=== PATIENT | female | born 1990 | race Two or more races ===

== ENCOUNTER 2024-03-29 10:56 | Inpatient (IN) | payer OTHER ==
[~2024-03-29] VITALS: Ht 157.5 cm; Wt 56.0 kg
--- NOTE | 2024-03-29 11:11 | ED.PDOC ---
GI ASSESSMENT HPI Comments 33Y F with PMHx crohn's disease presents to ED for chief complaint abd pain x2days with nausea, blood in stool, and dizziness. Pt states she gets nauseous when pain starts and becomes dizzy when walking. Abd pain level 10/10 and radiates to her back. Pt states she started noticing changes in stool last week and now has bright red blood in the stool. Pt denies vomiting. Pt is being f/u by Dr. Kim. Per pt, last flare was ~10yrs ago and pt was given Prednisone and other other unknown medication. Time Seen by MD: 11:02 Reviewed Notes: Medications, Allergies Allergies: Coded Allergies: Penicillins (Verified Allergy, Mild, 03/29/24) Uncoded Allergies: SULFA (Allergy, Mild, 03/29/24) Information Source: Patient Mode of Arrival: Ambulatory Timing: Days Duration: Since onset Quality: Sharp Vomitus: None Stool: Blood Streaked Severity: Moderate Recent: None Recent Hx of: Ulcer Disease Pain Location: Diffuse Modifying Factors: Nothing Associated sign and symptoms: Nausea, Abdominal Pain, Blood in Stool, Other Past Medical History Past Medical History (Other): Crohn's disease Surgical History: Denies all surgeries G[employer]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 Family History Family History: Unknown Social History Smoker: Non-Smoker Alcohol: Denies ETOH Use Drugs: Denies Drug Use Lives In: Home Constitutional: denies: chills, diaphoresis, fatigue, fever, malaise, sweats, weakness, others EENTM: denies: blurred vision, double vision, ear bleeding, ear discharge, ear drainage, ear pain, ear ringing, eye pain, eye redness, hearing loss, mouth pain, mouth swelling, nasal discharge, nose bleeding, nose congestion, nose pain, photophobia, tearing, throat pain, throat swelling, voice changes, others Respiratory: denies: cough, hemoptysis, orthopnea, SOB at rest, shortness of breath, SOB with excertion, stridor, wheezing, others Cardiovascular: denies: chest pain, dizzy spells, diaphoresis, Dyspnea on exertion, edema, irregular heart beat, left arm pain, lightheadedness, palpitations, PND, syncope, others Gastrointestinal: reports: abdominal pain, blood streaked bowels; denies: abdomen distended, constipated, diarrhea, dysphagia, difficulty swallowing, hematemesis, melena, nausea, poor appetite, poor fluid intake, rectal bleeding, rectal pain, vomiting, others Genitourinary: denies: abnormal vagina bleeding, burning, dyspareunia, dysuria, flank pain, frequency, hematuria, incontinence, pain, , vagina discharge, urgency, others Neurological: reports: dizziness; denies: fainting, headache, left sided numbness, left sided weakness, numbness, paresthesia, pre-existing deficit, r ight sided numbness, right sided weakness, seizure, speech problems, tingling, tremors, weakness, others Musculoskeletal: reports: back pain; denies: gout, joint pain, joint swelling, muscle pain, muscle stiffness, neck pain, others Integumetry: denies: bruises, change in color, change in hair/nails, dryness, laceration, lesions, lumps, rash, wounds, others Allergic/Immunocompromised: denies: Difficulty Healing, Frequent Infections, Hives, Itching, others Hematologic/Lymphatic: denies: anemia, blood clots, easy bleeding, easy bruising, swollen glands, others Endocrine: denies: excessive hunger, excessive sweating, excessive thirst, excessive urination, flushing, intolerance to cold, intolerance to heat, unexplained weight gain, unexplained weight loss, others Psychiatric: denies: anxiety, bipolar disorder, depression, hopeless, panic disorder, schizophrenia, sleepless, suicidal, others All Other Systems: Reviewed and Negative Physical Exam General Appearance: Moderate Distress, Normal HEENT: Normal ENT Inspection, Pharynx Normal, TMs Normal Neck: Full Range of Motion, Non-Tender, Normal, Normal Inspection Respiratory: Chest Non-Tender, Lungs Clear, No Accessory Muscle Use, No Respiratory Distress, Normal Breath Sounds Cardiovascular: No Edema, No JVD, No Murmur, No Gallop, Normal Peripheral Pulses, Tachycardia Breast Exam: Deferred Gastrointestinal: No Organomegaly, Non Tender, No Pulsatile Mass, Normal Bowel Sounds, Soft Genitalia: Deferred Pelvic: Deferred Rectal: Deferred Extremities: No calf tenderness, Normal capillary refill, Normal inspection, Normal range of motion, Non-tender, No pedal edema Musculoskeletal : Apperance: Normal Neurologic: Alert, solar electric installer II-XII nml as Tested, No Motor Deficits, Normal Affect, Normal Mood, No Sensory Deficits Cerebellar Function: Normal Reflexes: Normal Skin: Dry, Normal Color, Warm Peripheral Pulses: 3+ Radial (R), 3+ Radial (L) Lymphatic: No Adenopathy Was a procedure done? Was a procedure done?: No GI differential Dx Differential Diagnosis: Constipation, Diverticular disease, Esophagitis, Gastritis/PUD, Gastroenteritis, Other X-Ray, Labs, Meds, VS Vital Signs Date Time Temp Pulse Resp B/P (MAP) Pulse Ox O2 Delivery O2 Flow Rate FiO2 03/29/24 13:49 83 16 114/70 (85) 100 03/29/24 13:46 79 16 114/70 03/29/24 11:59 94 16 98 Room Air* 0 21 03/29/24 11:47 94 16 117/73 03/29/24 11:33 97.8 98 16 117/73 (88) 98 97.8 03/29/24 11:07 97.9 129 18 126/88 (101) 98 Lab Test 03/29/24 11:16 03/29/24 11:05 Range/Units White Blood Count 5.5 4.4-10.8 10^3/uL Red Blood Count 4.70 4.0-5.20 10^6/uL Hemoglobin 14.5 12.2-16.2 g/dL Hematocrit 43.7 36.0-46.0 % Mean Corpuscular Volume 93.1 80.0-100.0 fL Mean Corpuscular Hemoglobin 30.9 28.0-32.0 pg Mean Corpuscular Hemoglobin Concent 33.2 32.0-36.0 g/dL Red Cell Distribution Width 14.2 11.8-14.3 % Platelet Count 334 140-450 10^3/uL Mean Platelet Volume 7.7 6.9-10.8 fL Neutrophils (%) (Auto) 53.7 37.0-80.0 % Lymphocytes (%) (Auto) 23.0 10.0-50.0 % Monocytes (%) (Auto) 17.2 H 0.0-12.0 % Eosinophils (%) (Auto) 5.1 0.0-7.0 % Basophils (%) (Auto) 1.0 0.0-2.0 % Neutrophils # (Auto) 2.9 1.6-8.6 10 ^3/uL Lymphocytes # (Auto) 1.3 0.4-5.4 10 ^3/uL Monocytes # (Auto) 0.9 0-1.3 10 ^3/uL Eosinophils # (Auto) 0.3 0-0.8 10 ^3/uL Basophils # (Auto) 0.1 0-0.2 10 ^3/uL Nucleated Red Blood Cells 0.1 % Sodium Level 140 136-145 mmol/L Potassium Level 3.8 3.5-5.1 mmol/L Chloride Level 107 98-107 mmol/L Carbon Dioxide Level 28 20-31 mmol/L Anion Gap 5 5-15 Blood Urea Nitrogen < 5 L 9-23 mg/dL Creatinine 0.67 0.550-1.02 mg/dL Glomerular Filtration Rate Calc 118 >90 mL/min BUN/Creatinine Ratio 7.5 L 10.0-20.0 Serum Glucose 98 74-106 mg/dL Calcium Level 9.6 8.7-10.4 mg/dL Urine Color Colorless Yellow Urine Clarity Clear Clear Urine pH 6.0 5.0-9.0 Urine Specific [place] 1.002 1.001-1.035 Urine Protein Negative Negative Urine Ketones Negative Negative Urine Blood 1+ H Negative /uL Urine Nitrite Negative Negative Urine Bilirubin Negative Negative Urine Urobilinogen Normal Negative mg/dL Urine Leukocyte Esterase Negative Negative /uL Urine RBC <1 0 - 4 /hpf Urine WBC None seen 0 - 5 /hpf Urine Squamous Epithelial Cells Few <5 /hpf Urine Bacteria None seen None Seen /hpf Urine Glucose Normal Normal mg/dL Current Medications Medications (Trade) Dose Ordered Sig/Deonte Route Start Time Stop Time Status Last Admin Sodium Chloride 1,000 ml @ 1,000 mls/hr Q1H ONCE IV 03/29/24 11:15 03/29/24 12:14 DC 03/29/24 11:47 Ondansetron HCl (Zofran) 4 mg ONCE ONCE IV 03/29/24 11:15 03/29/24 11:16 DC 03/29/24 11:46 Morphine Sulfate 4 mg ONCE ONCE IV 03/29/24 11:15 03/29/24 11:16 DC 03/29/24 11:[address] [address] Ph: [phone] DIAGNOSTIC IMAGING Diagnostic Imaging Report : [id number] Signed PATIENT: EMERSON SANCHEZ ACCT: [id number] UNIT: [id number] : 1990 LOC: ER ROOM / BED: / AGE / SEX: 33 / F ADM STATUS: REG ER SERVICE 1228 ORDERING PHYSICIAN: RANDALL GONZALES MD PROCEDURE(s): ABPL - CT AB PEL WO CON-NO ORAL OR IV REASON: chrons ORDER NUMBER(s): [id number], ACCESSION NUMBER(s): [id number] Procedure: CT CT AB PEL WO CON-NO ORAL OR IV 03/29/2024 12:38 PM Indication:chrons. Comparison Study: None available at time of dictation. Technique: Axial images were obtained and reformatted in coronal and sagittal planes. All CT scans at this medical facility are performed using dose modulation techniques as appropriate to a performed exam including the following: Automated exposure control was utilized; adjustment of the MA and/or KV according to patient size; and use of iterative reconstruction technique. CT Dose: CTDI volume is 5.07 mGy. Dose-length product is 264.79 mGy*cm FINDINGS: Lower Chest: Unremarkable. Hepatobiliary: Unremarkable. Spleen: Unremarkable. Pancreas: Unremarkable. Adrenal Glands: Unremarkable. tract: The kidneys are normal in size bilaterally without hydronephrosis or nephrolithiasis. The urinary bladder is unremarkable. GI tract: The stomach is grossly normal in appearance. No evidence of small bowel obstruction. Diffuse mural thickening of the entire large bowel and rectum with adjacent fat stranding compatible with known history of inflammatory bowel disease.. The appendix is normal. Lymphatics: No mesenteric, retroperitoneal or periportal lymphadenopathy. Vasculature: The abdominal aorta is normal in in caliber. Pelvic Organs: Retroverted uterus. A tampon is seen in the vaginal cuff. Bones/soft tissues: No acute abnormality. Other: None. IMPRESSION: 1. Pancolitis and proctitis compatible with history of known crohn's disease. ATED BY: JERRICA GUERRIER MD DICTATED DATE/TIME: 03/29/24 1313 SIGNED BY: JERRICA GUERRIER MD SIGNED DATE/TIME: 03/29/24 1313 CC: Patient alert pain Complaining of abdominal pain. Vitals stable. Answering all questions. History of Crohn's disease. Counseled patient effects of Crohn's for 15 minutes. Has not changed her diet. Establish intravenous access. Was given fluids. Was given pain medication. Was given Zofran. Reviewed her history. Explained to the patient. Continue cardiac monitoring. Time of 1ST Reevaluation: 11:32 Reevaluation 1ST: Unchanged Patient Education/Counseling: Diagnosis, Treatment Family Education/Counseling: No Family Present Departure 1 Departure Time of Disposition: 11:23 Impression: Primary Impression: Inflammatory bowel disease Additional Impressions: Acute abdominal pain Tachycardia Disposition: ADMITTED INPATIENT Admit to: Med Surg Condition: Guarded Critical Care Note Critical Care Time?: No Stability Stability form required: No I personally scribed for RANDALL GONZALES MD ([email or web address]) on 03/29/24 at 11:11. Electronically submitted by Melissa Contreras ([employer]). I personally scribed for RANDALL GONZALES MD ([email or web address]) on 03/29/24 at 13:49. Electronically submitted by Melissa Contreras ([employer]). RANDALL GONZALES MD Mar 29, 2024 11:11
[2024-03-29] MEDS: SODIUM CHLORIDE 0.9% 1,000 ML IV ONE ×2 (11:15→11:47)
[2024-03-29 11:30] LABS: Basophils # (auto) 0.1 10 ^3/uL (0-0.2); Eosinophils # (auto) 0.3 10 ^3/uL (0-0.8); Eosinophils % (auto) 5.1 % (0.0-7.0); Hematocrit 43.7 % (36.0-46.0); Hemoglobin 14.5 g/dL (12.2-16.2); Lymphocytes # (auto) 1.3 10 ^3/uL (0.4-5.4); Mean Corpuscular Hemoglobin 30.9 pg (28.0-32.0); Mean Corpuscular Hgb Conc. 33.2 g/dL (32.0-36.0); Mean Corpuscular Volume 93.1 fL (80.0-100.0); Monocytes # (auto) 0.9 10 ^3/uL (0-1.3); Monocytes % (auto) 17.2 % (0.0-12.0); Neutrophils # (auto) 2.9 10 ^3/uL (1.6-8.6); Neutrophils % (auto) 53.7 % (37.0-80.0); Nucleated Red Blood Cells % 0.1 %; Platelet Count (auto) 334 10^3/uL (140-450); Red Cell Distribution Width 14.2 % (11.8-14.3); White Blood Cell 5.5 10^3/uL (4.4-10.8)
[2024-03-29 11:32] LABS: Urine Bacteria None Seen /hpf (None Seen); Urine WBC None Seen /hpf (0 - 5)
[2024-03-29 11:43] LABS: Urine Blood 1+ /uL (Negative); Urine Clarity Clear (Clear); Urine Color Colorless (Yellow); Urine Protein, UAD Negative (Negative); Urine Specific Gravity 1.002 (1.001-1.035); Urine Urobilinogen Normal (Negative)
[2024-03-29] MEDS: ONDANSETRON HCL 4 MG/2 ML VIAL IV ONE ×2 (11:46→17:51)
[2024-03-29] MEDS: MORPHINE SULFATE 4 MG/ML SYR/VIAL IV ONE (11:47)
[2024-03-29 11:52] LABS: Chloride 107 mmol/L (98-107); Potassium 3.8 mmol/L (3.5-5.1); Sodium 140 mmol/L (136-145)
[2024-03-29 11:53] LABS: Anion Gap 5 (5-15); Calcium 9.6 mg/dL (8.7-10.4); Carbon Dioxide 28 mmol/L (20-31)
[2024-03-29 11:58] LABS: Glucose 98 mg/dL (74-106)
[2024-03-29 11:59] VITALS: PULSE 94; RESP 16; O2SAT 98
[2024-03-29 11:59] LABS: BUN/Creatinine Ratio 7.5 (10.0-20.0); Blood Urea Nitrogen < 5 mg/dL (9-23)
--- NOTE | 2024-03-29 13:15 | DVH ---
Procedure: CT CT AB PEL WO CON-NO ORAL OR IV 03/29/2024 12:38 PM Indication:chrons. Comparison Study: None available at time of dictation. Technique: Axial images were obtained and reformatted in coronal and sagittal planes. All CT scans at this medical facility are performed using dose modulation techniques as appropriate t o a performed exam including the following: Automated exposure control was utilized; adjustment of th e MA and/or KV according to patient size; and use of iterative reconstruction technique. CT Dose: CTDI volume is 5.07 mGy. Dose-length product is 264.79 mGy*cm FINDINGS: Lower Chest: Unremarkable. Hepatobiliary: Unremarkable. Spleen: Unremarkable. Pancreas: Unremarkable. Adrenal Glands: Unremarkable. tract: The kidneys are normal in size bilaterally without hydronephrosis or nephrolithiasis. The urinary bladder is unremarkable. GI tract: The stomach is grossly normal in appearance. No evidence of small bowel obstruction. Diffus e mural thickening of the entire large bowel and rectum with adjacent fat stranding compatible with k nown history of inflammatory bowel disease.. The appendix is normal. Lymphatics: No mesenteric, retroperitoneal or periportal lymphadenopathy. Vasculature: The abdominal aorta is normal in in caliber. Pelvic Organs: Retroverted uterus. A tampon is seen in the vaginal cuff. Bones/soft tissues: No acute abnormality. Other: None. IMPRESSION: 1. Pancolitis and proctitis compatible with history of known crohn's disease.
[2024-03-29] MEDS: levoFLOXacin 500MG 100 ML IV ONE (17:36)
[2024-03-29] MEDS: MORPHINE SULFATE INJ 2 MG/ml SYRG IV ONE (17:51)
[2024-03-29] MEDS: ACETAMINOPHEN 500 MG TAB PO ONE (19:00)
[2024-03-29] MEDS: HYDROcodone-ACET 5/325MG TAB PO PRN (20:12)
[2024-03-29] MEDS ORDERED: MORPHINE SULFATE INJ 2 MG/ml SYRG IV PRN (21:30)
[2024-03-29] MEDS ORDERED: NITROGLYCERIN 0.4 MG SL TAB SL PRN (21:30)
[2024-03-29] MEDS: SODIUM CHLORIDE 0.9% 1,000 ML IV SCH (21:58)
--- NOTE | 2024-03-29 22:31 | DVHHPRES ---
History of Present Illness Resident Creating Document: CHANDA GARCIA RESIDENT History of Present Illness This is a 33 years old female with past medical history of Crohn's disease presented to the ED with a chief complaint of abdominal pain with bloody stool for 2 days prior to this admission. The patient states that abdominal pain which is colicky in nature ,localized to right lower quadrant, 10/10 with no aggravating and relieving factors and associated with bloody loose stool , fresh blood, nausea and few episodes of vomiting. She has significant family history of Crohn's disease and was diagnosed with Crohn's disease 10 years ago but she was not on any medications for Crohn's. She is following with for Crohn's disease and mentioned that she controlled her symptoms by doing dietary modification and last flare-up was 10 years ago. The patient denies chest pain, dizziness, diaphoresis,, dysuria or any blood in urine. PCP: Mino Mccormick Slot Floorman: Dr. Kim GI: Inflam bowel disease Past Surgical History None Family History Family history significant for Crohn's disease. Smoke: No ALCOHOL: none Drugs: None Lives: with Family Review of Systems Constitutional: No: Fever, Chills, Sweats, Weakness, Malaise, Other Eyes: No: Pain, Vision change, Conjunctivae inflammation, Eyelid inflammation, Other, Redness ENT: No: Ear pain, Ear discharge, Nose pain, Nose discharge, Nose congestion, Mouth pain, Mouth swelling, Throat pain, Throat swelling, Other Respiratory: No: Cough, Dry, Shortness of breath, SOB with excertion, Wheezing, Hemoptysis, Pleuritic Pain, Sputum, Wheezing, Other Cardiovascular: No: Chest Pain, Palpitations, Orthopnea, Paroxysmal Noc. Dy spnea, Edema, Lt Headedness, Other Gastrointestinal: Nausea, Vomiting, Abdominal Pain, Diarrhea, Hematochezia Genitourinary: No Dysuria, No Frequency, No Incontinence, No Hematuria, No Retention, No Other Musculoskeletal: No: other, neck pain, shoulder pain, arm pain, back pain, hand pain, leg pain, foot pain Skin: No: Rash, Lesions, Jaundice, Bruising, Other Neurological: No: Weakness, Numbness, Incoordination, Change in speech, Confusion, Seizures, Other Allergies: Coded Allergies: Penicillins (Verified Allergy, Mild, 03/29/24) Uncoded Allergies: SULFA (Allergy, Mild, 03/29/24) Medications Current Medications Medications Dose Ordered Sig/Deonte Route Start Time Stop Time Status Last Admin Dose Admin Acetaminophen/ Hydrocodone Bitart 1 tab Q4HPRN PRN PO 03/29/24 20:15 03/29/24 20:12 1 TAB Sodium Chloride 1,000 ml @ 75 mls/hr [id number] IV 03/29/24 21:30 03/29/24 21:58 75 MLS/HR Acetaminophen/ Hydrocodone Bitart 1 tab Q4HP PRN PO 03/29/24 21:30 Ondansetron HCl 4 mg Q4HP PRN IV 03/29/24 21:30 Morphine Sulfate 2 mg Q4HPRN PRN IV 03/29/24 21:30 Nitroglycerin 0.4 mg Q5MINP PRN SL 03/29/24 21:30 Morphine Sulfate 2 mg Q30M PRN IV 03/29/24 21:30 Ceftriaxone Sodium 50 ml @ 100 mls/hr DAILY@09 IV 03/30/24 09:00 Metronidazole 100 ml @ 100 mls/hr Q8HR IV 03/29/24 22:00 Exam Vital Signs Vital Signs Date Time Temp Pulse Resp B/P (MAP) Pulse Ox O2 Delivery O2 Flow Rate FiO2 03/29/24 20:38 98.1 75 16 115/79 (91) 98 98.1 03/29/24 11:59 Room Air* 0 21 Exam Physical examination: General Appearance: Alert, Oriented X3, Cooperative, No acute distress HEENT: Atraumatic, PERRLA, EOMI, Mucous membrane moist/pink Respiratory: Clear to auscultation, Normal air movement Cardiovascular: Regular rate, Normal S1, Normal S2, No murmurs, no chest wall tenderness Abdominal: Normal bowel sounds, Soft, No tenderness, No hepatospenomegaly, No masses Extremities: No clubbing, No cyanosis, No edema, Normal pulses, No tenderness/swelling Skin: No rashes, No breakdown, No significant lesion Neuro: Normal gait, Normal speech, Strength at 5/5 X4 ext, Normal tone, Sensation intact. Psych/Mental Status: Mental status NL, Mood NL Labs/Xrays Labs Test 03/29/24 11:16 03/29/24 11:15 03/29/24 11:05 Range/Units White Blood Count 5.5 4.4-10.8 10^3/uL Red Blood Count 4.70 4.0-5.20 10^6/uL Hemoglobin 14.5 12.2-16.2 g/dL Hematocrit 43.7 36.0-46.0 % Mean Corpuscular Volume 93.1 80.0-100.0 fL Mean Corpuscular Hemoglobin 30.9 28.0-32.0 pg Mean Corpuscular Hemoglobin Concent 33.2 32.0-36.0 g/dL Red Cell Distribution Width 14.2 11.8-14.3 % Platelet Count 334 140-450 10^3/uL Mean Platelet Volume 7.7 6.9-10.8 fL Neutrophils (%) (Auto) 53.7 37.0-80.0 % Lymphocytes (%) (Auto) 23.0 10.0-50.0 % Monocytes (%) (Auto) 17.2 H 0.0-12.0 % Eosinophils (%) (Auto) 5.1 0.0-7.0 % Basophils (%) (Auto) 1.0 0.0-2.0 % Neutrophils # (Auto) 2.9 1.6-8.6 10 ^3/uL Lymphocytes # (Auto) 1.3 0.4-5.4 10 ^3/uL Monocytes # (Auto) 0.9 0-1.3 10 ^3/uL Eosinophils # (Auto) 0.3 0-0.8 10 ^3/uL Basophils # (Auto) 0.1 0-0.2 10 ^3/uL Nucleated Red Blood Cells 0.1 % Sodium Level 140 136-145 mmol/L Potassium Level 3.8 3.5-5.1 mmol/L Chloride Level 107 98-107 mmol/L Carbon Dioxide Level 28 20-31 mmol/L Anion Gap 5 5-15 Blood Urea Nitrogen < 5 L 9-23 mg/dL Creatinine 0.67 0.550-1.02 mg/dL Glomerular Filtration Rate Calc 118 >90 mL/min BUN/Creatinine Ratio 7.5 L 10.0-20.0 Serum Glucose 98 74-106 mg/dL Calcium Level 9.6 8.7-10.4 mg/dL Urine Color Colorless Yellow Urine Clarity Clear Clear Urine pH 6.0 5.0-9.0 Urine Specific [place] 1.002 1.001-1.035 Urine Protein Negative Negative Urine Ketones Negative Negative Urine Blood 1+ H Negative /uL Urine Nitrite Negative Negative Urine Bilirubin Negative Negative Urine Urobilinogen Normal Negative mg/dL Urine Leukocyte Esterase Negative Negative /uL Urine RBC <1 0 - 4 /hpf Urine WBC None seen 0 - 5 /hpf Urine Squamous Epithelial Cells Few <5 /hpf Urine Bacteria None seen None Seen /hpf Urine Glucose Normal Normal mg/dL Assessment/Plan Assessment/Plan Assessment and plan: # Abdominal pain and bloody diarrhea likely secondary to flare-up of Crohn's - Known history of Crohn's disease, diagnosed 10 years ago - CT abdomen pelvis revealed pancolitis and proctitis - Patient is NPO except medication - IV normal saline at 75 mL/hour - IV ceftriaxone 1 g daily and IV metronidazole 500 mg t.i.d. - IV morphine 2 mg q.4 p.r.n. - IV ondansetron 4 mg q.4 p.r.n. - Ordered FOBT, C diff toxin # PUD prophylaxis - Protonix 40 mg IV daily # DVT prophylaxis - Not recommended as patient is mobile. Goal of care discussed with the patient for more than 20 minutes full code Plan of treatment discussed with Dr. Ndiaye Plan discussed with: Patient, Other My Orders Orders - CHANDA GARCIA RESIDENT Procedure Category Date Status Time Admit ADMIT 03/29/24 Transmitted 21:23 Code Status CODE 03/29/24 Transmitted 21:23 Sodium Chloride 0.9% PHA 03/29/24 In Process 21:30 Oxygen Per Hour RT 03/29/24 Transmitted 21:23 Hydrocodone-Acet PHA 03/29/24 In Process 5/325mg Tab ([place] 21:30 Ondansetron Hcl PHA 03/29/24 In Process (Zofran) 21:30 Complete Blood Count LAB 03/30/24 Verified 04:00 Comprehensive LAB 03/30/24 Verified Metabolic Panel 04:00 Npo (Nothing By DIET 03/30/24 Transmitted Mouth) Diet Breakfast Morphine Sulfate PHA 03/29/24 In Process Injection 21:30 Nitroglycerin PHA 03/29/24 In Process Sublingual (Ntrostat 21:30 Morphine Sulfate PHA 03/29/24 In Process Injection 21:30 Oxygen By Nasal RT 03/29/24 Transmitted Cannula 21:23 Stat Ekg For Chest NEO 03/29/24 In Process Pain 21:23 Notify Md Of Changes [facility] 03/29/24 In Process From Base 21:23 Senior Market Intelligence Consultant For NEO 03/29/24 In Process 24 Hours 21:23 Emergency Dysrhythmia [facility] 03/29/24 In Process Protocol 21:23 Rhythm Strips Once [facility] 03/29/24 In Process Every Shift 21:23 C-Reactive Protein LAB 03/29/24 In Process 22:00 Erythrocyte LAB 03/29/24 In Process Sedimentation Rate 22:00 Thyroid Stimulating LAB 03/29/24 In Process Hormone 22:00 Hemoglobin A1c LAB 03/29/24 In Process 22:00 Vitamin B12 LAB 03/29/24 In Process 22:00 Vitamin D, 25-Hydroxy LAB 03/29/24 In Process 22:00 Ceftriaxone 1gm/50ml PHA 03/30/24 In Process D5w (Rocephin) 09:00 Metronidazole PHA 03/29/24 In Process 500mg/100ml (Flagyl 22:00 Stool Occult Blood LAB 03/29/24 Uncollected 22:00 Date of Service: Mar 29, 2024 Billing Provider: LORENA NDIAYE MD Common Visit Codes: [id number] INP/OBS CARE (HIGH) Secondary Visit Codes: [id number] CARE PLAN 30 MINUTES CHANDA GARCIA RESIDENT Mar 29, 2024 22:31 LORENA NDIAYE MD Mar 30, 2024 18:21
[2024-03-29] MEDS: metroNIDAZOLE 500MG/100ML 100 ML IV SCH (22:38)
[2024-03-29 22:49] LABS: Erythrocyte Sedimentation Rate 6 mm/hr (0-20)
[2024-03-30] MEDS: ONDANSETRON HCL 4 MG/2 ML VIAL IV PRN (00:13)
[2024-03-30 00:30] VITALS: PULSE 111; RESP 18; O2SAT 98
[2024-03-30 03:48] LABS: Basophils # (auto) 0.1 10 ^3/uL (0-0.2); Basophils % (auto) 0.8 % (0.0-2.0); Eosinophils # (auto) 0.2 10 ^3/uL (0-0.8); Eosinophils % (auto) 3.3 % (0.0-7.0); Hematocrit 37.7 % (36.0-46.0); Hemoglobin 12.7 g/dL (12.2-16.2); Lymphocytes # (auto) 1.1 10 ^3/uL (0.4-5.4); Lymphocytes % (auto) 15.6 % (10.0-50.0); Mean Corpuscular Hemoglobin 31.3 pg (28.0-32.0); Mean Corpuscular Hgb Conc. 33.5 g/dL (32.0-36.0); Mean Corpuscular Volume 93.3 fL (80.0-100.0); Monocytes # (auto) 1.2 10 ^3/uL (0-1.3); Monocytes % (auto) 17.1 % (0.0-12.0); Neutrophils # (auto) 4.3 10 ^3/uL (1.6-8.6); Neutrophils % (auto) 63.2 % (37.0-80.0); Nucleated Red Blood Cells % 0.1 %; Platelet Count (auto) 278 10^3/uL (140-450); Red Blood Cells 4.04 10^6/uL (4.0-5.20); Red Cell Distribution Width 14.4 % (11.8-14.3); White Blood Cell 6.8 10^3/uL (4.4-10.8)
[2024-03-30 04:07] LABS: Alanine Aminotransferase 13 U/L (7-40); Alkaline Phosphatase 60 U/L (46-116); Anion Gap 6 (5-15); Aspartate Aminotransferase < 8 U/L (13-40); Bilirubin, Total 0.4 mg/dL (0.2-1.0); Calcium 9.1 mg/dL (8.7-10.4); Carbon Dioxide 24 mmol/L (20-31); Chloride 108 mmol/L (98-107); Glucose 109 mg/dL (74-106); Potassium 3.5 mmol/L (3.5-5.1); Sodium 138 mmol/L (136-145); Total Protein 6.1 g/dL (5.7-8.2)
[2024-03-30 04:10] LABS: BUN/Creatinine Ratio 10.2 (10.0-20.0); Blood Urea Nitrogen < 5 mg/dL (9-23)
[2024-03-30] MEDS: cefTRIAXone 1GM/50ML D5W 50 ML IV SCH (08:32)
[2024-03-30] MEDS: PANTOPRAZOLE 40 MG/10 ML VIAL INJ IV SCH (08:32)
[2024-03-30 09:35] VITALS: BP 99/57; PULSE 65; RESP 16; TEMP 99.8; O2SAT 97
--- NOTE | 2024-03-30 11:32 | DVHPNRES ---
Progress Note Date Seen: Mar 30, 2024 Resident Creating Document: PHANI ESPARZA RESIDENT Medical Necessity Reason Pt with a Central, PICC or Fol: No Subjective Review of Systems Patient is a 33-year-old female with past medical history of Crohn's disease and rectal hemorrhoids, who came in due to what she believes is her Crohn's disease flare-up. According to the patient, starting Friday03/27/2024 she began experiencing abdominal pain along with diarrhea. Patient states that her symptoms progressively got worse and she began to notice blood in her stool along with worsening intermittent sharp and crampy abdominal pain localized to the right lower quadrant, 01/26. Patient notes she was having severe diarrhea between 5-10 bowel movements every day for the past 4 days. She also notes she had multiple episodes of vomiting overnight. Her last flare-up with similar symptoms was 10 years ago, last colonoscopy was also 10 years ago. Patient is not on any medication for her Crohn's disease, she says she follows with the gastro group however she has not seen her GI doctor since 2019. Past surgical history: Breast augmentation surgery Home medications: None Past Hospitalization: 10 years ago Social & Personal history: Denies using tobacco, drinks alcohol on weekends. Denies using any drugs. Allergies: Penicillin and sulfa drugs Patient seen and examined at bedside. Patient is alert and oriented to time, place person and responding to all questions. General: Reports fever and chills in the last 1 week Eyes: No Pain, No Vision change, No Conjunctivae inflammation, No Eyelid inflammation, No Other, No Redness ENT: No Ear pain, No Ear discharge, No Nose pain, No Nose discharge, No Nose congestion, No Mouth pain, No Mouth swelling, No Throat pain, No Throat swelling, No Other Cardiovascular: No Chest Pain, No Palpitations, No Orthopnea, No Paroxysmal No Dyspnea, No Edema, No Lt Headedness, No Other Respiratory: No Cough, No Dry, No Shortness of breath, No SOB with exertion, No Wheezing, No Hemoptysis, No Pleuritic Pain, No Sputum, No Other Gastrointestinal: Nausea, Vomiting, Abdominal Pain, Diarrhea, No Constipation, No Melena, No Hematochezia, No Other Genitourinary: No Dysuria, No Frequency, No Incontinence, No Hematuria, No Retention, No Other Musculoskeletal: No other, No neck pain, No shoulder pain, No arm pain, No back pain, No hand pain, No leg pain, No foot pain Skin: No Rash, No Lesions, No Jaundice, No Bruising, No Other Objective vital signs Vital Sign Date Time Temp Pulse Resp B/P (MAP) Pulse Ox O2 Delivery O2 Flow Rate FiO2 03/30/24 09:35 99.8 65 16 99/57 (71) 97 99.8 03/30/24 00:30 Room Air* 0 21 Total Intake and Output 03/29/24 03/29/24 03/30/24 15:00 23:00 07:00 Intake Total 1000 ml 150 ml 175 ml Balance 1000 ml 150 ml 175 ml medications Current Medications Medications Dose Ordered Sig/Deonte Route Start Time Stop Time Status Last Admin Dose Admin Acetaminophen/ Hydrocodone Bitart 1 tab Q4HPRN PRN PO 03/29/24 20:15 03/30/24 06:45 1 TAB Sodium Chloride 1,000 ml @ 75 mls/hr [id number] IV 03/29/24 21:30 03/30/24 08:33 75 MLS/HR Acetaminophen/ Hydrocodone Bitart 1 tab Q4HP PRN PO 03/29/24 21:30 Ondansetron HCl 4 mg Q4HP PRN IV 03/29/24 21:30 03/30/24 00:13 4 MG Morphine Sulfate 2 mg Q4HPRN PRN IV 03/29/24 21:30 Nitroglycerin 0.4 mg Q5MINP PRN SL 03/29/24 21:30 Morphine Sulfate 2 mg Q30M PRN IV 03/29/24 21:30 Ceftriaxone Sodium 50 ml @ 100 mls/hr DAILY@09 IV 03/30/24 09:00 03/30/24 08:32 100 MLS/HR Metronidazole 100 ml @ 100 mls/hr Q8HR IV 03/29/24 22:00 03/30/24 06:41 100 MLS/HR Pantoprazole Sodium 40 mg DAILY IV 03/30/24 10:00 03/30/24 08:32 40 MG Prednisone 40 mg DAILY PO 03/31/24 10:00 Examination General Appearance: Alert, Oriented X3, Cooperative, No acute distress HEENT: Atraumatic, PERRLA, EOMI, Mucous membrane moist/pink Respiratory: Clear to auscultation, Normal air movement Cardiovascular: Regular rate, Normal S1, Normal S2, No murmurs, no chest wall tenderness Abdominal: Normal bowel sounds, Soft, No tenderness, No hepatospenomegaly, No masses Extremities: No clubbing, No cyanosis, No edema, Normal pulses, No tenderness/swelling Skin: No rashes, No breakdown, No significant lesion Neuro: Normal gait, Normal speech, Strength at 5/5 X4 ext, Normal tone, Sensation intact. Psych/Mental Status: Mental status NL, Mood NL laboratory and microbiology Laboratory Tests 03/30/24 03:20 Test 03/30/24 03:20 Range/Units Serum Glucose 109 H 74-106 mg/dL Problem List/Assessment/Plan Problem List/Assessment/Plan Crohn's disease, likely in flare-up: CDAI score 288.6 (moderate to severely active Crohn's disease) - CT abdomen pelvis: Pancolitis and proctitis compatible with history of known Crohn's disease - IV NS at 75 cc/hour - IV ceftriaxone, metronidazole - prednisone 40 mg p.o. daily - GI consulted PUD prophylaxis: IV protonix 40mg DVT prophylaxis: SCD Goals of care: Full code, discussed for >16 minutes on 03/30/24 Plan discussed with patient Plan discussed with Dr. Patel Plan discussed with: Patient, Other (RN) My Orders My Orders Orders - PHANI ESPARZA RESIDENT Procedure Category Date Status Time * Gi [facility] [employer] CONS 03/30/24 Transmitted 10:59 Prednisone Tablet PHA 03/31/24 In Process 10:00 Date of Service: Mar 30, 2024 Billing Provider: JAYME PATEL MD Common Visit Codes: [id number] INP/OBS CARE(HIGH) Coding Comment Comment I saw and evaluated the patient. I reviewed the residents note and agree with findings and plan as documented in the residents note. PHANI ESPARZA Mar 30, 2024 11:32 JAYME PATEL MD Mar 30, 2024 20:36
[2024-03-30 11:39] VITALS: PULSE 74; RESP 18; O2SAT 98
[2024-03-30] MEDS: predniSONE 20 MG TAB PO ONE (12:27)
--- NOTE | 2024-03-30 14:28 | DVHINCON2 ---
GI Consult Consult Note GI consult note Date of Consultation: 03/30/2024 Chief Complaint: Crohn's flare Referring Physician: Dr. Hale H&P: 33-year-old female admitted with abdominal pain mostly in the lower abdomen, started one-week ago, getting worse now Patient also has red blood in stool for the last four days. Patient has loose stool also Patient has nausea, and vomiting, no hematemesis Patient has history of Crohn's disease diagnosed 10 years ago, not on any medications at this time SP colonoscopy [address] Kim Past Medical History: Crohn's disease Past Surgical History: None Social History: NO smoking, drinking ETOH and use of illegal drugs. Family History: Noncontributory Review of Systems: Constitutional: no fever, chill, weight loss HEENT: no eye pain, no hearing loss, no oral lesion, no scleral icterus Heart: no chest pain, no chest pressure Lung: no cough, no dyspnea with exertion Abdomen: see HPI Physical exam: General: NAD, AAOX3 Chest: lung matthew clear to auscultation Heart: RRR, no murmur Abdomen: Nxma-fv-ulickjof tenderness lower abdomen, +BS Labs: Labs Test 03/30/24 09:00 03/30/24 03:20 03/29/24 11:16 03/29/24 11:15 Range/Units White Blood Count 6.8 4.4-10.8 10^3/uL Red Blood Count 4.04 4.0-5.20 10^6/uL Hemoglobin 12.7 12.2-16.2 g/dL Hematocrit 37.7 # 36.0-46.0 % Mean Corpuscular Volume 93.3 80.0-100.0 fL Mean Corpuscular Hemoglobin 31.3 28.0-32.0 pg Mean Corpuscular Hemoglobin Concent 33.5 32.0-36.0 g/dL Red Cell Distribution Width 14.4 H 11.8-14.3 % Platelet Count 278 140-450 10^3/uL Mean Platelet Volume 7.7 6.9-10.8 fL Neutrophils (%) (Auto) 63.2 37.0-80.0 % Lymphocytes (%) (Auto) 15.6 10.0-50.0 % Monocytes (%) (Auto) 17.1 H 0.0-12.0 % Eosinophils (%) (Auto) 3.3 0.0-7.0 % Basophils (%) (Auto) 0.8 0.0-2.0 % Neutrophils # (Auto) 4.3 1.6-8.6 10 ^3/uL Lymphocytes # (Auto) 1.1 0.4-5.4 10 ^3/uL Monocytes # (Auto) 1.2 0-1.3 10 ^3/uL Eosinophils # (Auto) 0.2 0-0.8 10 ^3/uL Basophils # (Auto) 0.1 0-0.2 10 ^3/uL Nucleated Red Blood Cells 0.1 % Sodium Level 138 136-145 mmol/L Potassium Level 3.5 3.5-5.1 mmol/L Chloride Level 108 H 98-107 mmol/L Carbon Dioxide Level 24 20-31 mmol/L Anion Gap 6 5-15 Blood Urea Nitrogen < 5 L 9-23 mg/dL Creatinine 0.49 L 0.550-1.02 mg/dL Glomerular Filtration Rate Calc 127 >90 mL/min BUN/Creatinine Ratio 10.2 10.0-20.0 Serum Glucose 109 H 74-106 mg/dL Calcium Level 9.1 8.7-10.4 mg/dL Total Bilirubin 0.4 0.2-1.0 mg/dL Aspartate Amino Transferase (AST) < 8 L 13-40 U/L Alanine Aminotransferase (ALT) 13 7-40 U/L Alkaline Phosphatase 60 46-116 U/L Total Protein 6.1 5.7-8.2 g/dL Albumin 4.0 3.2-4.8 g/dL C-Reactive Protein High Sensitivity 0.20 <1.0 mg/dL Erythrocyte Sedimentation Rate 6 0-20 mm/hr Hemoglobin A1c 5.1 <5.7 % A1C Vitamin B12 Level 1046 H 211-911 pg/mL Vitamin D 25-Hydroxy 42.8 30.0-100 ng/mL Thyroid Stimulating Hormone (TSH) 3.37 0.55-4.78 uIU/mL Test 03/29/24 11:05 Range/Units Urine Color Colorless Yellow Urine Clarity Clear Clear Urine pH 6.0 5.0-9.0 Urine Specific [place] 1.002 1.001-1.035 Urine Protein Negative Negative Urine Ketones Negative Negative Urine Blood 1+ H Negative /uL Urine Nitrite Negative Negative Urine Bilirubin Negative Negative Urine Urobilinogen Normal Negative mg/dL Urine Leukocyte Esterase Negative Negative /uL Urine RBC <1 0 - 4 /hpf Urine WBC None seen 0 - 5 /hpf Urine Squamous Epithelial Cells Few <5 /hpf Urine Bacteria None seen None Seen /hpf Urine Glucose Normal Normal mg/dL Imaging: CT abdomen pelvis IMPRESSION: 1. Pancolitis and proctitis compatible with history of known crohn's disease. Assessment: Crohn's disease GI bleed Abdominal pain Plan: -discussed with Dr. Burr Stool for WBC, , bacterial culture and C diff Continue antibiotics Prednisone Clear liquid diet advanced to full liquid if tolerating We will continue to monitor the patient Thank you for the consult Date of Service: Mar 30, 2024 Billing Provider: EVON DE LOS SANTOS Common Visit Codes: CONSULT ONLY Consultation Codes: [id number] CONSULT <60MIN EVON DE LOS SANTOS Mar 30, 2024 14:28
[2024-03-30 16:34] VITALS: BP 109/73; PULSE 66; RESP 18; TEMP 98.1; O2SAT 96
[2024-03-30 20:00] VITALS: PULSE 67; RESP 18; O2SAT 95
[2024-03-30] MEDS: SODIUM CHLORIDE 0.9% 1,000 ML IV SCH (20:00)
[2024-03-30] MEDS: MORPHINE SULFATE INJ 2 MG/ml SYRG IV PRN (20:26)
[2024-03-30 21:00] VITALS: BP 108/71; PULSE 67; RESP 18; TEMP 98; O2SAT 95
[2024-03-31] VITALS (7 sets, daily range): BP systolic 86–111; BP diastolic 51–71; PULSE 61–82; RESP 16–20; TEMP 97.7–98.4; O2SAT 95–98
--- NOTE | 2024-03-31 09:02 | DVHPN2 ---
Progress Note - Dictate Date Seen: Mar 31, 2024 Medical Necessity Reason Pt with a Central, PICC or Fol: No Subjective Patient seen at bedside She is feeling better today; less abdominal pain One bowel movement recorded vital signs Vital Sign Date Time Temp Pulse Resp B/P (MAP) Pulse Ox O2 Delivery O2 Flow Rate FiO2 03/31/24 06:18 61 18 97/51 03/31/24 05:00 97.7 98 97.7 03/30/24 20:00 Room Air* 0 21 Total Intake and Output 03/30/24 03/30/24 03/31/24 15:00 23:00 07:00 Intake Total 675 ml 1400 ml 2500 ml Balance 675 ml 1400 ml 2500 ml medications Current Medications Medications Dose Ordered Sig/Deonte Route Start Time Stop Time Status Last Admin Dose Admin Acetaminophen/ Hydrocodone Bitart 1 tab Q4HPRN PRN PO 03/29/24 20:15 03/30/24 22:17 1 TAB Acetaminophen/ Hydrocodone Bitart 1 tab Q4HP PRN PO 03/29/24 21:30 Ondansetron HCl 4 mg Q4HP PRN IV 03/29/24 21:30 03/31/24 06:25 4 MG Morphine Sulfate 2 mg Q4HPRN PRN IV 03/29/24 21:30 03/31/24 05:48 2 MG Nitroglycerin 0.4 mg Q5MINP PRN SL 03/29/24 21:30 Morphine Sulfate 2 mg Q30M PRN IV 03/29/24 21:30 Ceftriaxone Sodium 50 ml @ 100 mls/hr DAILY@09 IV 03/30/24 09:00 03/30/24 08:32 100 MLS/HR Metronidazole 100 ml @ 100 mls/hr Q8HR IV 03/29/24 22:00 03/31/24 05:41 100 MLS/HR Pantoprazole Sodium 40 mg DAILY IV 03/30/24 10:00 03/30/24 08:32 40 MG Prednisone 40 mg DAILY PO 03/31/24 10:00 Sodium Chloride 1,000 ml @ 100 mls/hr Q10H IV 03/30/24 20:00 03/31/24 05:45 100 MLS/HR objective General: NAD, AAOX3 Chest: lung matthew clear to auscultation Heart: RRR, no murmur Abdomen: Gqrq-ck-trhamfht tenderness lower abdomen, +BS laboratory and microbiology Laboratory Tests 03/30/24 03:20 Test 03/30/24 03:20 Range/Units Serum Glucose 109 H 74-106 mg/dL CT ABD IMPRESSION: 1. Pancolitis and proctitis compatible with history of known crohn's disease. Problems(with codes): (1) Crohn's disease (2) Inflammatory bowel disease (3) Acute abdominal pain Prognosis Plan Advance to full liquid diet and then soft mechanical if tolerated Continue IV steroids , IV Flagyl, await stool test results Change to oral prednisone tomorrow and if stable patient could be discharged home on a Medrol Dosepak We will also start her on Entocort 3 mg p.o. twice a day upon discharge I have advised her to follow up in my office as an outpatient to arrange outpatient elective colonoscopy I will follow up patient with you Plan discussed with: Patient RICHARD MCLAUGHLIN MD Mar 31, 2024 09:02
[2024-03-31] MEDS: predniSONE 20 MG TAB PO SCH (09:34)
--- NOTE | 2024-03-31 16:01 | DVHPNRES ---
Progress Note Date Seen: Mar 31, 2024 Resident Creating Document: PHANI ESPARZA RESIDENT Medical Necessity Reason Pt with a Central, PICC or Fol: No Subjective Review of Systems Patient is a 33-year-old female with past medical history of Crohn's disease and rectal hemorrhoids, who came in due to what she believes is her Crohn's disease flare-up. According to the patient, starting Friday03/27/2024 she began experiencing abdominal pain along with diarrhea. Patient states that her symptoms progressively got worse and she began to notice blood in her stool along with worsening intermittent sharp and crampy abdominal pain localized to the right lower quadrant, 01/26. Patient notes she was having severe diarrhea between 5-10 bowel movements every day for the past 4 days. She also notes she had multiple episodes of vomiting overnight. Her last flare-up with similar symptoms was 10 years ago, last colonoscopy was also 10 years ago. Patient is not on any medication for her Crohn's disease, she says she follows with the gastro group however she has not seen her GI doctor since 2019. Past surgical history: Breast augmentation surgery Home medications: None Past Hospitalization: 10 years ago Social & Personal history: Denies using tobacco, drinks alcohol on weekends. Denies using any drugs. Allergies: Penicillin and sulfa drugs Patient seen and examined at bedside. Patient is alert and oriented to time, place person and responding to all questions. Patient reports having 1 bowel movement overnight, which was bloody in nature. Reports continued abdominal pain, 7-12/26. Objective vital signs Vital Sign Date Time Temp Pulse Resp B/P (MAP) Pulse Ox O2 Delivery O2 Flow Rate FiO2 03/31/24 15:27 76 18 110/72 03/31/24 13:00 98.4 98 98.4 03/31/24 08:00 Room Air* 0 21 Total Intake and Output 03/30/24 03/30/24 03/31/24 15:00 23:00 07:00 Intake Total 675 ml 1400 ml 2500 ml Balance 675 ml 1400 ml 2500 ml medications Current Medications Medications Dose Ordered Sig/Deonte Route Start Time Stop Time Status Last Admin Dose Admin Acetaminophen/ Hydrocodone Bitart 1 tab Q4HPRN PRN PO 03/29/24 20:15 03/30/24 22:17 1 TAB Acetaminophen/ Hydrocodone Bitart 1 tab Q4HP PRN PO 03/29/24 21:30 Ondansetron HCl 4 mg Q4HP PRN IV 03/29/24 21:30 03/31/24 15:26 4 MG Morphine Sulfate 2 mg Q4HPRN PRN IV 03/29/24 21:30 03/31/24 15:27 2 MG Nitroglycerin 0.4 mg Q5MINP PRN SL 03/29/24 21:30 Morphine Sulfate 2 mg Q30M PRN IV 03/29/24 21:30 Ceftriaxone Sodium 50 ml @ 100 mls/hr DAILY@09 IV 03/30/24 09:00 03/31/24 09:34 100 MLS/HR Metronidazole 100 ml @ 100 mls/hr Q8HR IV 03/29/24 22:00 03/31/24 15:26 100 MLS/HR Pantoprazole Sodium 40 mg DAILY IV 03/30/24 10:00 03/31/24 09:34 40 MG Sodium Chloride 1,000 ml @ 100 mls/hr Q10H IV 03/30/24 20:00 03/31/24 05:45 100 MLS/HR Prednisone 40 mg DAILY PO 04/01/24 10:00 Examination General Appearance: Alert, Oriented X3, Cooperative, No acute distress HEENT: Atraumatic, PERRLA, EOMI, Mucous membrane moist/pink Respiratory: Clear to auscultation, Normal air movement Cardiovascular: Regular rate, Normal S1, Normal S2, No murmurs, no chest wall tenderness Abdominal: Normal bowel sounds, Soft, mild-moderate generalized tenderness, No hepatospenomegaly, No masses Extremities: No clubbing, No cyanosis, No edema, Normal pulses, No tenderness/swelling Skin: No rashes, No breakdown, No significant lesion Neuro: Normal gait, Normal speech, Strength at 5/5 X4 ext, Normal tone, Sensation intact. Psych/Mental Status: Mental status NL, Mood NL laboratory and microbiology Laboratory Tests 03/30/24 03:20 Test 03/30/24 03:20 Range/Units Serum Glucose 109 H 74-106 mg/dL Microbiology Date/Time Source Procedure Growth Status 03/30/24 09:00 Stool Clostridium difficile Toxin Assay - Final Complete Problem List/Assessment/Plan Problem List/Assessment/Plan Acute intractable abdominal pain Crohn's disease, likely in flare-up: CDAI score 288.6 (moderate to severely active Crohn's disease) - CT abdomen pelvis: Pancolitis and proctitis compatible with history of known Crohn's disease - IV NS at 75 cc/hour - IV ceftriaxone, metronidazole - prednisone 40 mg p.o. daily - GI consulted - advanced diet full liquid - possible discharge tomorrow on 04/01/24 PUD prophylaxis: IV protonix 40mg DVT prophylaxis: SCD Goals of care: Full code, discussed for >16 minutes on 03/30/24 Plan discussed with patient Plan discussed with Dr. Patel Plan discussed with: Patient, Other (RN) Date of Service: Mar 31, 2024 Billing Provider: JAYME PATEL MD Common Visit Codes: [id number] INP/OBS CARE(HIGH) Coding Comment Comment Attending Attestation I saw and evaluated the patient. I reviewed the residents note and agree with findings and plan as documented in the residents note except as documented below. PHANI ESPARZA RESIDENT Mar 31, 2024 16:01 JAYME PATEL MD Mar 31, 2024 18:43
[2024-04-01] VITALS (8 sets, daily range): BP systolic 86–108; BP diastolic 56–69; PULSE 58–80; RESP 16–20; TEMP 98–98.7; O2SAT 91–100
[2024-04-01] MEDS: predniSONE 20 MG TAB PO SCH (08:55)
[2024-04-01] MEDS: DICYCLOMINE HCL 10 MG CAP PO PRN (12:04)
[2024-04-01] MEDS: methylPREDNISolone SOD SUCC 40 MG/ML VL IV SCH (14:05)
[2024-04-01] MEDS: HYDROcodone-ACET 5/325MG TAB PO PRN (17:01)
--- NOTE | 2024-04-01 18:50 | DVHPNRES ---
Progress Note Date Seen: Apr 01, 2024 Resident Creating Document: PHANI ESPARZA RESIDENT Medical Necessity Reason Pt with a Central, PICC or Fol: No Subjective Review of Systems Patient is a 33-year-old female with past medical history of Crohn's disease and rectal hemorrhoids, who came in due to what she believes is her Crohn's disease flare-up. According to the patient, starting Friday03/27/2024 she began experiencing abdominal pain along with diarrhea. Patient states that her symptoms progressively got worse and she began to notice blood in her stool along with worsening intermittent sharp and crampy abdominal pain localized to the right lower quadrant, 01/26. Patient notes she was having severe diarrhea between 5-10 bowel movements every day for the past 4 days. She also notes she had multiple episodes of vomiting overnight. Her last flare-up with similar symptoms was 10 years ago, last colonoscopy was also 10 years ago. Patient is not on any medication for her Crohn's disease, she says she follows with the gastro group however she has not seen her GI doctor since 2019. Past surgical history: Breast augmentation surgery Home medications: None Past Hospitalization: 10 years ago Social & Personal history: Denies using tobacco, drinks alcohol on weekends. Denies using any drugs. Allergies: Penicillin and sulfa drugs Patient seen and examined at bedside. Patient is alert and oriented to time, place person and responding to all questions. Patient reports having two bowel movements overnight, in 2 bowel movements in the a.m.. Patient notes decreasing bloody stool, however, reports stool is still watery. Patient also notes increasing abdominal pain. Objective vital signs Vital Sign Date Time Temp Pulse Resp B/P (MAP) Pulse Ox O2 Delivery O2 Flow Rate FiO2 04/01/24 16:49 98.7 80 20 108/69 (82) 97 98.7 04/01/24 08:00 Room Air* 0 21 Total Intake and Output 03/31/24 03/31/24 04/01/24 15:00 23:00 07:00 Intake Total 50 ml 3350 ml 1580 ml Balance 50 ml 3350 ml 1580 ml medications Current Medications Medications Dose Ordered Sig/Deonte Route Start Time Stop Time Status Last Admin Dose Admin Acetaminophen/ Hydrocodone Bitart 1 tab Q4HP PRN PO 03/29/24 21:30 04/01/24 17:01 1 TAB Ondansetron HCl 4 mg Q4HP PRN IV 03/29/24 21:30 03/31/24 21:27 4 MG Morphine Sulfate 2 mg Q4HPRN PRN IV 03/29/24 21:30 04/01/24 09:12 2 MG Nitroglycerin 0.4 mg Q5MINP PRN SL 03/29/24 21:30 Morphine Sulfate 2 mg Q30M PRN IV 03/29/24 21:30 Ceftriaxone Sodium 50 ml @ 100 mls/hr DAILY@09 IV 03/30/24 09:00 04/01/24 08:55 100 MLS/HR Metronidazole 100 ml @ 100 mls/hr Q8HR IV 03/29/24 22:00 04/01/24 14:05 100 MLS/HR Pantoprazole Sodium 40 mg DAILY IV 03/30/24 10:00 04/01/24 08:55 40 MG Sodium Chloride 1,000 ml @ 100 mls/hr Q10H IV 03/30/24 20:00 04/01/24 12:05 100 MLS/HR Dicyclomine HCl 10 mg TID PRN PO 04/01/24 09:15 04/01/24 12:04 10 MG Methylprednisolone Sodium Succinate 40 mg DAILY IV 04/01/24 12:15 04/01/24 14:05 40 MG Examination General Appearance: Alert, Oriented X3, Cooperative, No acute distress HEENT: Atraumatic, PERRLA, EOMI, Mucous membrane moist/pink Respiratory: Clear to auscultation, Normal air movement Cardiovascular: Regular rate, Normal S1, Normal S2, No murmurs, no chest wall tenderness Abdominal: Normal bowel sounds, Soft,moderate generalized tenderness, No hepatospenomegaly, No masses Extremities: No clubbing, No cyanosis, No edema, Normal pulses, No tenderness/swelling Skin: No rashes, No breakdown, No significant lesion Neuro: Normal gait, Normal speech, Strength at 5/5 X4 ext, Normal tone, Sensation intact. Psych/Mental Status: Mental status NL, Mood NL laboratory and microbiology Laboratory Tests 03/30/24 03:20 Test 03/30/24 03:20 Range/Units Serum Glucose 109 H 74-106 mg/dL Microbiology Date/Time Source Procedure Growth Status 03/30/24 09:00 Stool Clostridium difficile Toxin Assay - Final Complete Problem List/Assessment/Plan Problem List/Assessment/Plan Acute intractable abdominal pain Crohn's disease, likely in flare-up: CDAI score 288.6 (moderate to severely active Crohn's disease) - CT abdomen pelvis: Pancolitis and proctitis compatible with history of known Crohn's disease - IV NS at 75 cc/hour - IV ceftriaxone, metronidazole - discontinue prednisone and started patient on IV methylprednisolone 40 mg daily - GI consulted - dicyclomine 10 mg p.o. t.i.d. as needed for abdominal pain - advanced diet full liquid - possible discharge tomorrow on 04/01/24 PUD prophylaxis: IV protonix 40mg DVT prophylaxis: SCD Goals of care: Full code, discussed for >16 minutes on 03/30/24 Plan discussed with patient Plan discussed with Dr. Patel Plan discussed with: Patient, Other (RN) My Orders My Orders Orders - PHANI ESPARZA RESIDENT Procedure Category Date Status Time Methylprednisolone PHA 04/01/24 In Process Sod Succ (Solu Medrol 12:15 Date of Service: Apr 01, 2024 Billing Provider: JAYME PATEL MD Common Visit Codes: [id number] INP/OBS CARE(HIGH) Coding Comment Comment Attending Attestation I saw and evaluated the patient. I reviewed the residents note and agree with findings and plan as documented in the residents note except as documented below. Non improvement from p.o. steroid, switched to IV patient take oral budesonide was discharged and Dosepak Medrol for slow taper PHANI ESPARZA Apr 01, 2024 18:50 JAYME PATEL MD Apr 01, 2024 19:39
--- NOTE | 2024-04-01 22:14 | DVHPN2 ---
Progress Note - Dictate Date Seen: Apr 01, 2024 Medical Necessity Reason Pt with a Central, PICC or Fol: No Subjective Patient seen at bedside She developed more abdominal pain and cramping after eating a mechanically soft diet Patient had five bowel movements last night Stool for occult blood was positive and she had many WBC vital signs Vital Sign Date Time Temp Pulse Resp B/P (MAP) Pulse Ox O2 Delivery O2 Flow Rate FiO2 04/01/24 21:00 98.4 75 18 101/64 (76) 98 98.4 04/01/24 08:00 Room Air* 0 21 Total Intake and Output 03/31/24 03/31/24 04/01/24 15:00 23:00 07:00 Intake Total 50 ml 3350 ml 1580 ml Balance 50 ml 3350 ml 1580 ml medications Current Medications Medications Dose Ordered Sig/Deonte Route Start Time Stop Time Status Last Admin Dose Admin Acetaminophen/ Hydrocodone Bitart 1 tab Q4HP PRN PO 03/29/24 21:30 04/01/24 17:01 1 TAB Ondansetron HCl 4 mg Q4HP PRN IV 03/29/24 21:30 04/01/24 19:02 4 MG Morphine Sulfate 2 mg Q4HPRN PRN IV 03/29/24 21:30 04/01/24 19:03 2 MG Nitroglycerin 0.4 mg Q5MINP PRN SL 03/29/24 21:30 Morphine Sulfate 2 mg Q30M PRN IV 03/29/24 21:30 Ceftriaxone Sodium 50 ml @ 100 mls/hr DAILY@09 IV 03/30/24 09:00 04/01/24 08:55 100 MLS/HR Metronidazole 100 ml @ 100 mls/hr Q8HR IV 03/29/24 22:00 04/01/24 14:05 100 MLS/HR Pantoprazole Sodium 40 mg DAILY IV 03/30/24 10:00 04/01/24 08:55 40 MG Sodium Chloride 1,000 ml @ 100 mls/hr Q10H IV 03/30/24 20:00 04/01/24 12:05 100 MLS/HR Dicyclomine HCl 10 mg TID PRN PO 04/01/24 09:15 04/01/24 12:04 10 MG Methylprednisolone Sodium Succinate 40 mg DAILY IV 04/01/24 12:15 04/01/24 14:05 40 MG objective General: NAD, AAOX3 Chest: lung matthew clear to auscultation Heart: RRR, no murmur Abdomen: Eyvl-cj-sktbcloo tenderness lower abdomen, +BS laboratory and microbiology Laboratory Tests 03/30/24 03:20 Test 03/30/24 03:20 Range/Units Serum Glucose 109 H 74-106 mg/dL Problems(with codes): (1) Crohn's disease (2) Acute abdominal pain (3) Inflammatory bowel disease Prognosis Assessment plan Stool studies are pending Continue IV Flagyl Decrease IV prednisone to 40 mg daily We will change her to prednisone 40 mg p.o. daily in a.m. We will discharge on a Medrol Dosepak for one week Patient will also be started on Entocort 3 mg p.o. twice a day Outpatient follow up with me or a [employer] lieutenant for ongoing care Plan discussed with: Patient, Other (Nurse) RICHARD MCLAUGHLIN MD Apr 01, 2024 22:14
[2024-04-02 01:00] VITALS: BP 96/65; PULSE 65; RESP 16; TEMP 98.8; O2SAT 96
[2024-04-02 05:00] VITALS: BP 98/64; PULSE 69; RESP 18; TEMP 98.6; O2SAT 98
[2024-04-02 06:53] LABS: Hematocrit 31.2 % (36.0-46.0); Hemoglobin 10.4 g/dL (12.2-16.2); Mean Corpuscular Hemoglobin 30.9 pg (28.0-32.0); Mean Corpuscular Hgb Conc. 33.3 g/dL (32.0-36.0); Mean Corpuscular Volume 92.9 fL (80.0-100.0); Platelet Count (auto) 257 10^3/uL (140-450); Red Blood Cells 3.36 10^6/uL (4.0-5.20); Red Cell Distribution Width 14.2 % (11.8-14.3); White Blood Cell 6.6 10^3/uL (4.4-10.8)
[2024-04-02 07:03] LABS: Basophils % (manual) 0 (0.0-2.0); Blast Cells 0; Chloride 115 mmol/L (98-107); Metamyelocytes % 0; Myelocytes % 0; Promyelocytes % 0; Reactive Lymphocytes 0
[2024-04-02 07:04] LABS: Anion Gap 10 (5-15); Carbon Dioxide 23 mmol/L (20-31)
[2024-04-02 07:05] LABS: Calcium 7.5 mg/dL (8.7-10.4)
[2024-04-02 07:09] LABS: BUN/Creatinine Ratio 12.8 (10.0-20.0); Blood Urea Nitrogen 6 mg/dL (9-23); Glucose 67 mg/dL (74-106)
[2024-04-02 07:13] LABS: Sodium 148 mmol/L (136-145)
[2024-04-02 07:36] LABS: Eosinophils % (manual) 4 (0-7); Lymphocytes % (manual) 25 (10.0-50.0); Monocytes % (manual) 23 (0-12)
[2024-04-02 07:37] LABS: Band Neutrophils % (manual) 4; Platelet Estimate Adequate; RBC Morphology Normal
[2024-04-02 08:00] VITALS: PULSE 65; RESP 17; O2SAT 97
[2024-04-02 09:00] VITALS: BP 108/75; PULSE 65; RESP 17; TEMP 98.7; O2SAT 97
[2024-04-02] MEDS: POTASSIUM EFFERVESENT TAB 25 MEQ PO ONE (09:08)
[2024-04-02] MEDS ORDERED: METH4PAK PO (11:56)
[2024-04-02] MEDS ORDERED: BUDE3CAP18 PO (11:56)
[2024-04-02] MEDS ORDERED: PANT40T PO (11:56)
[2024-04-02 12:33] VITALS: BP 118/76; PULSE 68; RESP 17; TEMP 98; O2SAT 97
[2024-04-02 12:53] VITALS: BP 108/75; PULSE 65; RESP 17; TEMP 98.7; O2SAT 97
--- NOTE | 2024-04-02 13:08 | DVHDSRES ---
Discharge Summary Date of Admission Resident Creating Document: PHANI ESPARZA RESIDENT Mar 29, 2024 at 21:23 Date of Discharge: Apr 02, 2024 Admitting Diagnosis Intractable abdominal pain Labs/Diagnostic Data: Laboratory Results Test 04/02/24 05:52 04/01/24 05:12 03/30/24 20:49 03/30/24 09:00 White Blood Count 6.6 10^3/uL (4.4-10.8) Red Blood Count 3.36 10^6/uL (4.0-5.20) Hemoglobin 10.4 g/dL (12.2-16.2) Hematocrit 31.2 % (36.0-46.0) Mean Corpuscular Volume 92.9 fL (80.0-100.0) Mean Corpuscular Hemoglobin 30.9 pg (28.0-32.0) Mean Corpuscular Hemoglobin Concent 33.3 g/dL (32.0-36.0) Red Cell Distribution Width 14.2 % (11.8-14.3) Platelet Count 257 10^3/uL (140-450) Mean Platelet Volume 8.1 fL (6.9-10.8) Neutrophils (%) (Auto) % (37.0-80.0) Lymphocytes (%) (Auto) % (10.0-50.0) Monocytes (%) (Auto) % (0.0-12.0) Basophils (%) (Auto) % (0.0-2.0) Neutrophils # (Auto) 10 ^3/uL (1.6-8.6) Lymphocytes # (Auto) 10 ^3/uL (0.4-5.4) Monocytes # (Auto) 10 ^3/uL (0-1.3) Differential Total Cells Counted 100.0 (100) Neutrophils % (Manual) 44 (37.0-80.0) Band Neutrophils % (Manual) 4 Lymphocytes % (Manual) 25 (10.0-50.0) Monocytes % (Manual) 23 (0-12) Eosinophils % (Manual) 4 (0-7) Basophils % (Manual) 0 (0.0-2.0) Metamyelocytes % (manual) 0 Myelocytes % (Manual) 0 Promyelocytes % (Manual) 0 Blast Cells % (Manual) 0 Reactive Lymphocytes 0 Platelet Estimate Adequate Red Blood Cell Morphology Normal Sodium Level 148 mmol/L (136-145) Potassium Level 3.0 mmol/L (3.5-5.1) Chloride Level 115 mmol/L (98-107) Carbon Dioxide Level 23 mmol/L (20-31) Anion Gap 10 (5-15) Blood Urea Nitrogen 6 mg/dL (9-23) Creatinine 0.47 mg/dL (0.550-1.02) Glomerular Filtration Rate Calc 128 mL/min (>90) BUN/Creatinine Ratio 12.8 (10.0-20.0) Serum Glucose 67 mg/dL (74-106) Calcium Level 7.5 mg/dL (8.7-10.4) Stool for White Cells Many Stool Occult Blood Positive (Negative) Stool Occult Blood Sample #3 (Negative) Test 03/30/24 03:20 03/29/24 11:16 03/29/24 11:15 03/29/24 11:05 Eosinophils (%) (Auto) 3.3 % (0.0-7.0) Eosinophils # (Auto) 0.2 10 ^3/uL (0-0.8) Basophils # (Auto) 0.1 10 ^3/uL (0-0.2) Nucleated Red Blood Cells 0.1 % Total Bilirubin 0.4 mg/dL (0.2-1.0) Aspartate Amino Transferase (AST) < 8 U/L (13-40) Alanine Aminotransferase (ALT) 13 U/L (7-40) Alkaline Phosphatase 60 U/L (46-116) Total Protein 6.1 g/dL (5.7-8.2) Albumin 4.0 g/dL (3.2-4.8) C-Reactive Protein High Sensitivity 0.20 mg/dL (<1.0) Erythrocyte Sedimentation Rate 6 mm/hr (0-20) Hemoglobin A1c 5.1 % A1C (<5.7) Vitamin B12 Level 1046 pg/mL (211-911) Vitamin D 25-Hydroxy 42.8 ng/mL (30.0-100) Thyroid Stimulating Hormone (TSH) 3.37 uIU/mL (0.55-4.78) Urine Color Colorless (Yellow) Urine Clarity Clear (Clear) Urine pH 6.0 (5.0-9.0) Urine Specific [place] 1.002 (1.001-1.035) Urine Protein Negative (Negative) Urine Ketones Negative (Negative) Urine Blood 1+ /uL (Negative) Urine Nitrite Negative (Negative) Urine Bilirubin Negative (Negative) Urine Urobilinogen Normal mg/dL (Negative) Urine Leukocyte Esterase Negative /uL (Negative) Urine RBC <1 /hpf (0 - 4) Urine WBC None seen /hpf (0 - 5) Urine Squamous Epithelial Cells Few /hpf (<5) Urine Bacteria None seen /hpf (None Seen) Urine Glucose Normal mg/dL (Normal) Other Laboratory Tests 04/02/24 05:52 Brief Hx & Hospital Course: Patient is a 33-year-old female with past medical history of Crohn's disease and rectal hemorrhoids, who came in due to what she believes is her Crohn's disease flare-up. According to the patient, starting Friday03/27/2024 she began experiencing abdominal pain along with diarrhea. Patient states that her symptoms progressively got worse and she began to notice blood in her stool along with worsening intermittent sharp and crampy abdominal pain localized to the right lower quadrant, 01/26. Patient notes she was having severe diarrhea between 5-10 bowel movements every day for the past 4 days. She also notes she had multiple episodes of vomiting overnight. Her last flare-up with similar symptoms was 10 years ago, last colonoscopy was also 10 years ago. Patient is not on any medication for her Crohn's disease, she says she follows with the gastro group however she has not seen her GI doctor since 2019. Hospital course: CT abdomen pelvis showed pancolitis and proctitis compatible with history of known Crohn's disease. Patient was started on IV NS at 75 cc/hour, IV ceftriaxone and metronidazole. Patient was initially started on p.o. prednisone 40 mg, and GI was consulted. After 2 days of p.o. steroids, patient continued to have 4-5 bowel movements overnight watery and bloody along with increasing abdominal pain, shortly after patient was started on IV methylprednisolone 40 mg. On the day of discharge, patient reported 4 bowel movements overnight and similar abdominal pain as yesterday. Patient was adamant on going home and continuing the rest of the treatment at home. Per GI recommendations, patient was sent home with Medrol Gigi for 1 week, budesonide 3 mg b.i.d. and Protonix 40 mg daily for 30 days. Patient was instructed to follow up with her GI doctor in the outpatient clinic at her earliest. On the day of discharge, patient's orthostatic blood pressure was measured at the bedside and the readings were 117/67 sitting, 126/83 standing. Her hospital course was uncomplicated. General Appearance: Alert, Oriented X3, Cooperative, No acute distress HEENT: Atraumatic, PERRLA, EOMI, Mucous membrane moist/pink Respiratory: Clear to auscultation, Normal air movement Cardiovascular: Regular rate, Normal S1, Normal S2, No murmurs, no chest wall tenderness Abdominal: Normal bowel sounds, Soft,moderate generalized tenderness, No hepatospenomegaly, No masses Extremities: No clubbing, No cyanosis, No edema, Normal pulses, No tenderness/swelling Skin: No rashes, No breakdown, No significant lesion Neuro: Normal gait, Normal speech, Strength at 5/5 X4 ext, Normal tone, Sensation intact. Psych/Mental Status: Mental status NL, Mood NL Consults/Reason for consult GI - Crohns disease exacerbation Operations or Procedures Procedure: CT CT AB PEL WO CON-NO ORAL OR IV 03/29/2024 12:38 PM Indication:chrons. Comparison Study: None available at time of dictation. Technique: Axial images were obtained and reformatted in coronal and sagittal planes. All CT scans at this medical facility are performed using dose modulation techniques as appropriate to a performed exam including the following: Automated exposure control was utilized; adjustment of the MA and/or KV according to patient size; and use of iterative reconstruction technique. CT Dose: CTDI volume is 5.07 mGy. Dose-length product is 264.79 mGy*cm FINDINGS: Lower Chest: Unremarkable. Hepatobiliary: Unremarkable. Spleen: Unremarkable. Pancreas: Unremarkable. Adrenal Glands: Unremarkable. tract: The kidneys are normal in size bilaterally without hydronephrosis or nephrolithiasis. The urinary bladder is unremarkable. GI tract: The stomach is grossly normal in appearance. No evidence of small bowel obstruction. Diffuse mural thickening of the entire large bowel and rectum with adjacent fat stranding compatible with known history of inflammatory bowel disease.. The appendix is normal. Lymphatics: No mesenteric, retroperitoneal or periportal lymphadenopathy. Vasculature: The abdominal aorta is normal in in caliber. Pelvic Organs: Retroverted uterus. A tampon is seen in the vaginal cuff. Bones/soft tissues: No acute abnormality. Other: None. IMPRESSION: 1. Pancolitis and proctitis compatible with history of known crohn's disease. Condition at Discharge: Good Final Diagnosis/Problems List Acute intractable abdominal pain Crohn's disease, likely in flare-up: CDAI score 288.6 (moderate to severely active Crohn's disease) Discharge Disposition: Home Discharge Instruct/Medications Diet: See Comment Diet comment: continue liquid diet, advance diet as tolerated. Avoid spicy and oily foods. Activity: No Restrictions, As Tolerated Follow Up/Referral: please follow up with GI in the outpatient clinic within 1-2 weeks Medications: medrol dose pack for 7 days budesonide 3mg po twice a day protonix 40mg once daily for 30 days Discharge Statement: "Patient was advised to return to the ER or call 911 if any headaches, dizziness, shortness of breath, chest pain, abdominal pain, bleeding, fevers, or worsening of medical condition. Patient was counseled about treatment plan, medications, possible side effects, patientverbalized understanding. All questions were answered to the best of my ability. This discharge took greater then 30 minutes in planning, reviewing documentation, counseling the patient, and discussing with other team members." ASSESSMENT ASSESSMENT Assessment Acute intractable abdominal pain Crohn's disease, likely in flare-up: CDAI score 288.6 (moderate to severely active Crohn's disease) PHANI ESPARZA RESIDENT Apr 02, 2024 13:08
[2024-04-05 12:06] LABS: Saccharomyces cerevisiae IgA <20.0 Units (0.0-24.9)
== END 2024-04-02 14:25 | disposition home or self-care (01) | DRG 387 ==
LOC: ER 10:56 → OVERFLOW 21:23 → TELE-E-ADS 03-30 16:18 → EAST 04-02 03:24
PROVIDERS: ADMIT Internal Medicine; ATTEND Internal Medicine
DX: K50.911 Crohn's disease, unspecified, with rectal bleeding (principal); K52.9 Noninfective gastroenteritis and colitis, unspecified; K62.89 Other specified diseases of anus and rectum; Z88.0 Allergy status to penicillin; Z88.2 Allergy status to sulfonamides
CPT/HCPCS: 36415; 74176; 80048; 80053; 81001; 82270; 82306; 82607; 83036; 84443; 85007; 85025; 85027; 85048; 85652; 86141; 86256; 86671; 87045; 87427; 87493; G0378; J1956; J2405; J2470; J3490